=== PATIENT | male | born 1960 | race Caucasian/White ===

== ENCOUNTER 2023-12-06 19:34 | Emergency (ER) | payer BC ==
[2023-12-06 19:50] VITALS: BP 140/73; PULSE 94; RESP 16; TEMP 98.1; BMI 25.8
[2023-12-06 20:00] LABS: HEMATOCRIT 40.7 % (35.4-49); HEMOGLOBIN 14.1 G/dL (11.7-16.9); MCH 32.5 pg (25.7-33.7); MCHC 34.6 g/dl (32.0-35.9); MEAN CELL VOLUME 93.7 fl (80-96); MEAN PLT VOLUME 8.6 fl (7.5-11.1); PLATELET COUNT 266.2 10^3/uL (134-434); RBC 4.34 10^6/uL (4.00-5.60); RDW 13.5 % (11.9-15.9); WHITE BLOOD COUNT 7.2 10^3/uL (4.0-10.8)
[2023-12-06 20:09] LABS: INR 0.96 (0.83-1.09); PROTHROMBIN TIME (PATIENT) 11.1 SEC (9.7-13.0)
[2023-12-06 20:22] LABS: ALBUMIN 4.4 g/dl (3.4-5.0); BILIRUBIN,TOTAL 0.4 mg/dl (0.2-1); CALCIUM 9.6 mg/dl (8.5-10.1); CREATININE 1.1 mg/dl (0.6-1.3); POTASSIUM 3.7 mmol/L (3.5-5.1); TOT PROT 6.7 g/dl (6.4-8.2)
[2023-12-06 20:49] LABS: PLATELET ESTIMATE ADEQUATE
== END 2023-12-06 22:03 | disposition home or self-care (01) ==
LOC: FER 19:34
DX: R55 Syncope and collapse (principal); R42 Dizziness and giddiness; E86.0 Dehydration
CPT/HCPCS: 36415; 70450-TC; 80053; 84484; 85027; 85610; 93005; 99285-25